=== PATIENT | male | born 1975 | race Two or more races ===

== ENCOUNTER 2021-03-15 14:41 | Inpatient (IN) | payer MEDICAID, OTHER ==
[~2021-03-15] VITALS: Ht 165.1 cm; Wt 82.7 kg
[2021-03-15 15:28] LABS: Basophils # (auto) 0 10 ^3/uL (0-0.2); Basophils % (auto) 0.1 % (0.0-2.0); Eosinophils # (auto) 0 10 ^3/uL (0-0.8); Eosinophils % (auto) 0.2 % (0.0-7.0); Hemoglobin 15.7 g/dL (13.5-17.5); Lymphocytes # (auto) 1.9 10 ^3/uL (0.4-5.4); Lymphocytes % (auto) 10.8 % (10.0-50.0); Mean Corpuscular Hemoglobin 33.1 pg (28.0-32.0); Mean Corpuscular Hgb Conc. 34.9 g/dL (32.0-36.0); Mean Corpuscular Volume 94.9 fL (80.0-100.0); Monocytes # (auto) 0.7 10 ^3/uL (0-1.3); Neutrophils # (auto) 14.6 10 ^3/uL (1.6-8.6); Neutrophils % (auto) 84.9 % (37.0-80.0); Platelet Count (auto) 336 10^3/uL (140-450); Red Blood Cells 4.74 10^6/uL (4.5-5.90); Red Cell Distribution Width 12.5 % (11.8-14.3); White Blood Cell 17.2 10^3/uL (4.4-10.8)
[2021-03-15 15:47] LABS: Albumin 3.9 g/dL (3.4-5.0); Calcium 8.5 mg/dL (8.5-10.1); Potassium 3.7 mmol/L (3.5-5.1)
[2021-03-15 15:51] LABS: BUN/Creatinine Ratio 20.2; Bilirubin, Total 0.4 mg/dL (0.2-1.0); Total Protein 7.5 g/dL (6.4-8.2)
[2021-03-15 16:36] LABS: INR 0.98 (0.9-1.15); Partial Thromboplastin Time 27.9 sec (23.0-31.2)
[2021-03-15] MEDS ORDERED: PIPERACILLIN-TAZOB 3.375GM 100 ML IV ONE (16:45)
[2021-03-15] MEDS ORDERED: metroNIDAZOLE 500MG/100ML 100 ML IV ONE (16:45)
[2021-03-15] MEDS ORDERED: OMNIPAQUE ORAL SOLN 500ml 12mg/ml PO ONE (16:58)
[2021-03-15] MEDS ORDERED: IOHEXOL 300 MG/ML 100ML BOTTLE IJ ONE (16:58)
[2021-03-15] MEDS ORDERED: ONDANSETRON HCL 4 MG/2 ML VIAL IV PRN (17:00)
[2021-03-15] MEDS ORDERED: PROMETHAZINE HCL 25 MG/ML 1ML IV ONE (17:00)
[2021-03-15] MEDS ORDERED: ACETAMINOPHEN 500 MG TAB PO PRN (17:00)
[2021-03-15] MEDS: MORPHINE SULF INJ 2 MG/ML SYRINGE 1ML IV PRN ×2 (17:12→22:46)
[2021-03-15] MEDS: D5W/SOD CHLO 0.9% 1,000 ML IV SCH ×2 (17:12→22:30)
[2021-03-15 20:49] VITALS: BP 115/73
[2021-03-15 22:20] VITALS: BP 115/73
[2021-03-15] MEDS: metroNIDAZOLE 500MG/100ML 100 ML IV SCH (22:37)
[2021-03-16] MEDS: HYDROcodone-ACET 5/325MG TAB PO PRN (04:44)
[2021-03-16 05:19] VITALS: BP 104/65
[2021-03-16] MEDS: metroNIDAZOLE 500MG/100ML 100 ML IV SCH ×3 (06:13→21:53)
[2021-03-16 06:29] LABS: Basophils # (auto) 0 10 ^3/uL (0-0.2); Basophils % (auto) 0.2 % (0.0-2.0); Eosinophils # (auto) 0.1 10 ^3/uL (0-0.8); Eosinophils % (auto) 0.6 % (0.0-7.0); Hematocrit 42.1 % (41.0-53.0); Hemoglobin 14.7 g/dL (13.5-17.5); Lymphocytes # (auto) 1.5 10 ^3/uL (0.4-5.4); Lymphocytes % (auto) 11.9 % (10.0-50.0); Mean Corpuscular Hemoglobin 33.1 pg (28.0-32.0); Mean Corpuscular Volume 94.5 fL (80.0-100.0); Monocytes # (auto) 0.7 10 ^3/uL (0-1.3); Monocytes % (auto) 5.7 % (0.0-12.0); Neutrophils # (auto) 10.1 10 ^3/uL (1.6-8.6); Neutrophils % (auto) 81.6 % (37.0-80.0); Nucleated Red Blood Cells % 0.1 %; Platelet Count (auto) 283 10^3/uL (140-450); Red Blood Cells 4.45 10^6/uL (4.5-5.90); Red Cell Distribution Width 12.7 % (11.8-14.3); White Blood Cell 12.4 10^3/uL (4.4-10.8)
[2021-03-16 06:46] LABS: INR 1.02 (0.9-1.15); Partial Thromboplastin Time 31.5 sec (23.0-31.2)
[2021-03-16 06:53] LABS: Potassium 3.5 mmol/L (3.5-5.1)
[2021-03-16 07:03] LABS: Albumin 3.4 g/dL (3.4-5.0); BUN/Creatinine Ratio 10.7; Bilirubin, Total 1.2 mg/dL (0.2-1.0); Total Protein 6.7 g/dL (6.4-8.2)
[2021-03-16 08:54] VITALS: BP 98/60
[2021-03-16] MEDS: D5W/SOD CHLO 0.9% 1,000 ML IV SCH ×2 (08:56→13:12)
[2021-03-16] MEDS: PANTOPRAZOLE 40 MG/10 ML VIAL INJ IV SCH (08:57)
[2021-03-16] MEDS: cefTRIAXone 1GM/50ML D5W 50 ML IV SCH (08:57)
[2021-03-16 11:28] LABS: Urine Specific Gravity 1.015 (1.001-1.035)
[2021-03-16 11:29] LABS: Urine Bacteria NONE SEEN /hpf (None Seen); Urine Blood Negative /uL (Negative); Urine WBC <1 /hpf (0 - 3)
[2021-03-16 12:36] VITALS: BP 108/60
[2021-03-16 16:40] VITALS: BP 99/57
[2021-03-17 05:45] VITALS: BP 95/56
[2021-03-17 06:04] LABS: Basophils # (auto) 0 10 ^3/uL (0-0.2); Basophils % (auto) 0.3 % (0.0-2.0); Eosinophils # (auto) 0.1 10 ^3/uL (0-0.8); Hematocrit 43.1 % (41.0-53.0); Hemoglobin 14.8 g/dL (13.5-17.5); Lymphocytes # (auto) 1.7 10 ^3/uL (0.4-5.4); Lymphocytes % (auto) 15.7 % (10.0-50.0); Mean Corpuscular Hemoglobin 32.9 pg (28.0-32.0); Mean Corpuscular Hgb Conc. 34.4 g/dL (32.0-36.0); Mean Corpuscular Volume 95.7 fL (80.0-100.0); Monocytes # (auto) 0.7 10 ^3/uL (0-1.3); Neutrophils # (auto) 8.5 10 ^3/uL (1.6-8.6); Nucleated Red Blood Cells % 0.2 %; Platelet Count (auto) 293 10^3/uL (140-450); Red Blood Cells 4.51 10^6/uL (4.5-5.90); Red Cell Distribution Width 12.7 % (11.8-14.3)
[2021-03-17] MEDS: metroNIDAZOLE 500MG/100ML 100 ML IV SCH ×3 (06:04→21:35)
[2021-03-17] MEDS: D5W/SOD CHLO 0.9% 1,000 ML IV SCH ×4 (06:05→20:19)
[2021-03-17 06:29] LABS: BUN/Creatinine Ratio 11.1; Calcium 8.1 mg/dL (8.5-10.1); Potassium 3.7 mmol/L (3.5-5.1)
[2021-03-17] MEDS: cefTRIAXone 1GM/50ML D5W 50 ML IV SCH (08:17)
[2021-03-17] MEDS: PANTOPRAZOLE 40 MG/10 ML VIAL INJ IV SCH (08:18)
[2021-03-17 08:49] VITALS: BP 101/61
[2021-03-17 13:00] VITALS: BP 105/62
[2021-03-17] MEDS ORDERED: CLINIMIX PER PHARMACY 0 ML IV SCH (13:15)
[2021-03-17 14:28] LABS: Bilirubin, Direct 0.2 mg/dL (0-0.2); Magnesium 2.4 mg/dL (1.6-2.6)
[2021-03-17 14:33] LABS: Bilirubin, Total 0.8 mg/dL (0.2-1.0); Phosphorus 2.9 mg/dL (2.5-4.90); Pre Albumin 20.4 mg/dL (20.0-40.0); Total Protein 6.8 g/dL (6.4-8.2)
[2021-03-17 16:50] VITALS: BP 105/56
[2021-03-17] MEDS: AMINO ACID INFUSION IN D10W 1,000 ML IV NR (20:19)
[2021-03-17 22:00] VITALS: BP 127/50
[2021-03-18] MEDS ORDERED: DEXTROSE (50%) 50ML SYRG IV SCH
[2021-03-18] MEDS: ACCU-CHEK COMFORT CURVE STRIP VI SCH ×4 (00:33→17:11)
[2021-03-18 05:08] VITALS: BP 103/57
[2021-03-18] MEDS: metroNIDAZOLE 500MG/100ML 100 ML IV SCH ×3 (05:42→22:06)
[2021-03-18] MEDS: InsuLIN REG 1unit/0.01ml Soln (100units/ml) SC SCH ×4 (05:43→17:29)
[2021-03-18 06:36] LABS: Basophils # (auto) 0 10 ^3/uL (0-0.2); Basophils % (auto) 0.3 % (0.0-2.0); Eosinophils # (auto) 0.1 10 ^3/uL (0-0.8); Eosinophils % (auto) 1.5 % (0.0-7.0); Hemoglobin 14.8 g/dL (13.5-17.5); Lymphocytes # (auto) 1.5 10 ^3/uL (0.4-5.4); Lymphocytes % (auto) 15.6 % (10.0-50.0); Mean Corpuscular Hemoglobin 33.5 pg (28.0-32.0); Mean Corpuscular Hgb Conc. 35.2 g/dL (32.0-36.0); Monocytes # (auto) 0.5 10 ^3/uL (0-1.3); Monocytes % (auto) 5.2 % (0.0-12.0); Neutrophils # (auto) 7.4 10 ^3/uL (1.6-8.6); Neutrophils % (auto) 77.4 % (37.0-80.0); Platelet Count (auto) 297 10^3/uL (140-450); Red Blood Cells 4.42 10^6/uL (4.5-5.90); Red Cell Distribution Width 12.5 % (11.8-14.3); White Blood Cell 9.5 10^3/uL (4.4-10.8)
[2021-03-18 06:51] LABS: Calcium 7.7 mg/dL (8.5-10.1); Potassium 3.5 mmol/L (3.5-5.1)
[2021-03-18 06:57] LABS: Albumin 2.9 g/dL (3.4-5.0); BUN/Creatinine Ratio 12.9; Bilirubin, Total 0.6 mg/dL (0.2-1.0); Magnesium 2.4 mg/dL (1.6-2.6); Phosphorus 2.8 mg/dL (2.5-4.90); Total Protein 6.7 g/dL (6.4-8.2)
[2021-03-18 09:00] VITALS: BP 90/53
[2021-03-18] MEDS: cefTRIAXone 1GM/50ML D5W 50 ML IV SCH (10:00)
[2021-03-18] MEDS: PANTOPRAZOLE 40 MG/10 ML VIAL INJ IV SCH (10:30)
[2021-03-18] MEDS ORDERED: OMNIPAQUE ORAL SOLN 500ml 12mg/ml PO ONE (10:30)
[2021-03-18] MEDS: D5W/SOD CHLO 0.9% 1,000 ML IV SCH ×2 (11:04→18:37)
[2021-03-18 13:49] VITALS: BP 106/66
[2021-03-18 16:48] VITALS: BP 117/78
[2021-03-18] MEDS: HYDROcodone-ACET 5/325MG TAB PO PRN (17:30)
[2021-03-18] MEDS ORDERED: AMINO ACID INFUSION IN D10W 1,000 ML IV NR (20:00)
[2021-03-18 22:00] VITALS: BP 96/54
[2021-03-19] MEDS: ACCU-CHEK COMFORT CURVE STRIP VI SCH ×2 (00:11→06:17)
[2021-03-19 05:00] VITALS: BP 108/61
[2021-03-19] MEDS: InsuLIN REG 1unit/0.01ml Soln (100units/ml) SC SCH ×2 (06:00)
[2021-03-19 06:05] LABS: Basophils # (auto) 0 10 ^3/uL (0-0.2); Basophils % (auto) 0.3 % (0.0-2.0); Eosinophils # (auto) 0.2 10 ^3/uL (0-0.8); Eosinophils % (auto) 2.1 % (0.0-7.0); Hematocrit 41.7 % (41.0-53.0); Hemoglobin 14.8 g/dL (13.5-17.5); Lymphocytes # (auto) 1.6 10 ^3/uL (0.4-5.4); Lymphocytes % (auto) 21.4 % (10.0-50.0); Mean Corpuscular Hemoglobin 33.7 pg (28.0-32.0); Mean Corpuscular Hgb Conc. 35.5 g/dL (32.0-36.0); Mean Corpuscular Volume 94.7 fL (80.0-100.0); Monocytes # (auto) 0.5 10 ^3/uL (0-1.3); Monocytes % (auto) 6.6 % (0.0-12.0); Neutrophils # (auto) 5.1 10 ^3/uL (1.6-8.6); Neutrophils % (auto) 69.6 % (37.0-80.0); Platelet Count (auto) 299 10^3/uL (140-450); Red Cell Distribution Width 12.4 % (11.8-14.3); White Blood Cell 7.3 10^3/uL (4.4-10.8)
[2021-03-19] MEDS: metroNIDAZOLE 500MG/100ML 100 ML IV SCH ×2 (06:17→14:00)
[2021-03-19] MEDS: D5W/SOD CHLO 0.9% 1,000 ML IV SCH (06:17)
[2021-03-19 06:18] LABS: Potassium 3.6 mmol/L (3.5-5.1)
[2021-03-19 06:25] LABS: Albumin 2.9 g/dL (3.4-5.0); BUN/Creatinine Ratio 9.9; Bilirubin, Total 0.5 mg/dL (0.2-1.0); Calcium 8.1 mg/dL (8.5-10.1); Magnesium 2.2 mg/dL (1.6-2.6); Phosphorus 2.5 mg/dL (2.5-4.90); Total Protein 6.7 g/dL (6.4-8.2)
[2021-03-19 09:01] VITALS: BP 103/59
[2021-03-19] MEDS: cefTRIAXone 1GM/50ML D5W 50 ML IV SCH (09:25)
[2021-03-19] MEDS: PANTOPRAZOLE 40 MG/10 ML VIAL INJ IV SCH (09:26)
[2021-03-19] MEDS: HYDROcodone-ACET 5/325MG TAB PO PRN (09:52)
[2021-03-19] MEDS: AMINO ACID INFUSION IN D10W 1,000 ML IV NR (09:53)
[2021-03-19] MEDS ORDERED: D5W/SOD CHLO 0.9% 1,000 ML IV SCH (10:45)
[2021-03-19 12:48] VITALS: BP 105/59
[2021-03-19] MEDS ORDERED: LEVO500T31 PO (13:19)
[2021-03-19] MEDS ORDERED: METR500T PO (13:19)
[2021-03-19 15:23] VITALS: BP 105/59
== END 2021-03-19 16:00 | disposition home or self-care (01) | DRG 720 ==
LOC: ER 14:41 → OVERFLOW 16:51 → CENTRAL 20:20
PROVIDERS: ADMIT Nurse Practitioner Acute Care; ATTEND Internal Medicine
DX: A41.9 Sepsis, unspecified organism (principal); K63.1 Perforation of intestine (nontraumatic); E66.9 Obesity, unspecified; K52.9 Noninfective gastroenteritis and colitis, unspecified; Z68.32 Body mass index [BMI] 32.0-32.9, adult; Z20.822 Contact with and (suspected) exposure to COVID-19
CPT/HCPCS: 36415; 74176; 74177; 80048; 80053; 80076; 81001; 82040; 82962; 83605; 83690; 83735; 84100; 84478; 85025; 85610; 85730; 86850; 86900; 86901; 87040; 87426; 96365; 96368; 96375; 97163; C9113; G0378; J0696; J2405; J2543; J3490; J7042

== ENCOUNTER 2023-04-05 06:00 | Outpatient (CLI) | payer OTHER ==
[~2023-04-05] VITALS: Ht 165.1 cm; Wt 94.3 kg
[2023-04-05 06:37] LABS: Basophils # (auto) 0 10 ^3/uL (0-0.2); Basophils % (auto) 0.3 % (0.0-2.0); Eosinophils # (auto) 0.2 10 ^3/uL (0-0.8); Eosinophils % (auto) 1.9 % (0.0-7.0); Hematocrit 45.6 % (41.0-53.0); Hemoglobin 15.8 g/dL (13.5-17.5); Lymphocytes # (auto) 2.6 10 ^3/uL (0.4-5.4); Lymphocytes % (auto) 27.3 % (10.0-50.0); Mean Corpuscular Hemoglobin 32.6 pg (28.0-32.0); Mean Corpuscular Hgb Conc. 34.7 g/dL (32.0-36.0); Mean Corpuscular Volume 93.8 fL (80.0-100.0); Monocytes # (auto) 0.6 10 ^3/uL (0-1.3); Monocytes % (auto) 6.4 % (0.0-12.0); Neutrophils % (auto) 64.1 % (37.0-80.0); Red Blood Cells 4.86 10^6/uL (4.5-5.90); Red Cell Distribution Width 13.1 % (11.8-14.3); White Blood Cell 9.4 10^3/uL (4.4-10.8)
[2023-04-05 06:45] LABS: INR 1.02 (0.9-1.15)
[2023-04-05 07:10] LABS: Albumin 3.7 g/dL (3.4-5.0); BUN/Creatinine Ratio 19.2 (10.0-20.0); Calcium 8.9 mg/dL (8.5-10.1); Potassium 4.3 mmol/L (3.5-5.1)
[2023-04-05 08:09] LABS: Bilirubin, Total 0.6 mg/dL (0.2-1.0); Total Protein 7.6 g/dL (6.4-8.2)
== END 2023-04-05 06:15 | disposition home or self-care (01) ==
LOC: LAB 06:00 → EDSTATUS 04-06 09:30 → EDUNIT# 04-06 09:30
PROVIDERS: ATTEND Internal Medicine Gastroenterology
DX: Z12.11 Encounter for screening for malignant neoplasm of colon (principal); Z01.812 Encounter for preprocedural laboratory examination; K92.2 Gastrointestinal hemorrhage, unspecified
CPT/HCPCS: 36415; 80053; 85025; 85610; 85730